=== PATIENT | female | born 1965 | race Caucasian/White ===

== ENCOUNTER 2016-07-11 16:53 | Emergency (ER) | payer BC, OTHER ==
[~2016-07-11] VITALS: Ht 154.9 cm; Wt 58.5 kg
[~2016-07-11 16:53] MED LIST: AMLO5TAB2 PO; ATIV1TAB7 PO; CITA20TA4 PO; SUMA25TA3 PO; [UNRECOGNIZED DRUG - OTHER]
[2016-07-11 19:38] VITALS: BP 150/82
--- NOTE | 2016-07-12 10:34 | REP ---
AP EXAMINATION OF THE NECK, CHEST, ABDOMEN, AND PELVIS: REASON: Rule out metallic foreign body. No radiopaque foreign body is present. Signed by Rodo Lei DO 07/12/2016 11:25 A
== END 2016-07-11 19:40 | disposition home or self-care (01) ==
LOC: M ED 17:57
DX: Z04.8 Encounter for examination and observation for other specified reasons (principal)

== ENCOUNTER 2018-04-25 12:18 | Emergency (ER) | payer BC, OTHER ==
[~2018-04-25] VITALS: Ht 157.5 cm; Wt 64.5 kg
[2018-04-25 12:18] VITALS: BP 151/87
[~2018-04-25 12:18] MED LIST changes: -AMLO5TAB2 PO; +AMLO5TAB4 PO
[2018-04-25] MEDS ORDERED: LIDO1SOL7 PO (13:35)
--- NOTE | 2018-04-29 11:56 | REP ---
Clinical: Foreign body. Technique: Single supine view of the abdomen and pelvis. Findings: Bowel gas pattern is nonspecific. No organomegaly. No abnormal calcifications. No foreign body identified. Impression: No foreign body appreciated. Electronically Signed by Alexander Walker MD 04/25/2018 01:01 P
--- NOTE | 2018-04-29 11:57 | REP ---
Clinical: Foreign body. Technique: AP and lateral soft tissue neck radiographs. Findings: Visualized airway is patent. Surrounding soft tissues are unremarkable. Age-related degenerative changes to the cervical spine noted. No foreign body. No subcutaneous emphysema. No mass or mass effect. Impression: Normal examination. No foreign body identified. Electronically Signed by Alexander Walker MD 04/25/2018 01:03 P
--- NOTE | 2018-04-29 11:57 | REP ---
Clinical: Ingested foreign body . Comparison: 10/28/2011 . Findings: The mediastinum and cardiac silhouette are stable and within normal limits. The lung shin are symmetric and clear without acute consolidation, effusion, or pneumothorax. Skeletal structures are intact. Impression: No acute cardiopulmonary process appreciated. No foreign body identified. Electronically Signed by Alexander Walker MD 04/25/2018 01:02 P
== END 2018-04-25 13:40 | disposition home or self-care (01) ==
LOC: M ED 12:18
DX: R13.10 Dysphagia, unspecified (principal); I10 Essential (primary) hypertension

== ENCOUNTER → 2018-04-28 | Outpatient (CLI) | payer BC, OTHER ==
[~2018-04-28] MED LIST changes: -AMLO5TAB4 PO; +AMLO5TAB6 PO; +LIDO1SOL7 PO
[2018-04-28 17:56] LABS: ALBUMIN 4.4 GM/DL (3.2-5.2); ALT/SGPT 53 U/L (12-78); BILIRUBIN,TOTAL 0.9 MG/DL (0.2-1.0); BLOOD UREA NITROGEN 10 MG/DL (7-18); CALCIUM LEVEL 9.6 MG/DL (8.5-10.1); CARBON DIOXIDE LEVEL 33 MEQ/L (21-32); CHLORIDE LEVEL 97 MEQ/L (98-107); CHOLESTEROL LEVEL 268 MG/DL (<200); CHOLESTEROL RISK RATIO 4.542 (<5); CREATININE FOR GFR 0.74 MG/DL (0.55-1.30); FREE T4 0.92 NG/DL (0.76-1.46); GLOMERULAR FILTRATION RATE > 60.0 (>51); GLUCOSE, FASTING 87 MG/DL (70-100); HDL CHOLESTEROL 59 MG/DL (>40); LDL CHOLESTEROL 168 MG/DL (<100); NON-HDL-C 209 MG/DL; POTASSIUM SERUM 4.4 MEQ/L (3.5-5.1); SODIUM LEVEL 135 MEQ/L (136-145); TOTAL PROTEIN 7.5 GM/DL (6.4-8.2); TRIGLYCERIDES LEVEL 206 MG/DL (<150)
[2018-04-28 17:58] LABS: FOLLICLE STIMULATING HORMONE 100.9 mIU/mL; LUTEINIZING HORMONE 44.4 mIU/mL
[2018-04-28 18:04] LABS: HEMOGLOBIN A1c 5.6 %
== END ==
LOC: M SMT 14:00
PROVIDERS: ATTEND Physician Assistant
DX: I10 Essential (primary) hypertension (principal); G47.00 Insomnia, unspecified

== ENCOUNTER → 2018-05-12 | Outpatient (REF) | payer OTHER ==
[2018-05-14 18:21] LABS: HPV HYBRID CAPTURE II Negative (Negative)
== END ==
LOC: M LAB REF 13:08
PROVIDERS: ATTEND Specialist
DX: Z12.4 Encounter for screening for malignant neoplasm of cervix (principal)

== ENCOUNTER → 2018-06-16 | Outpatient (REF) | payer OTHER | LOC: M LAB REF 17:07 | PROVIDERS: ATTEND Physician Assistant | DX: J02.9 Acute pharyngitis, unspecified (principal) ==

== ENCOUNTER → 2018-10-20 | Outpatient (CLI) | payer OTHER ==
[~2018-10-20] MED LIST changes: -CITA20TA4 PO; +CITA20TA6 PO; -LIDO1SOL7 PO; +LIDO1SOL8 PO
[2018-10-20 17:27] LABS: BASO # 0.1 10^3/uL (0.0-0.2); BASO % 0.8 % (0.0-1.0); EOS # 0.2 10^3/uL (0.0-0.50); EOS % 2.5 % (0.0-3.0); HEMATOCRIT 41.5 % (36.0-47.0); HEMOGLOBIN 14.1 g/dl (12.0-15.5); LYMPH % 32.6 % (24.0-44.0); MEAN CORPUSCULAR HEMOGLOBIN 31.1 pg (27.0-33.0); MEAN CORPUSCULAR VOLUME 91.4 fl (80.0-96.0); MONO # 0.5 10^3/uL (0.0-0.8); MONO % 8.2 % (0.0-5.0); NEUTROPHILS # 3.4 10^3/uL (1.8-7.7); NEUTROPHILS % 55.6 % (36.0-66.0); PLATELET COUNT, AUTOMATED 229 10^3/uL (150-450); RED BLOOD COUNT 4.54 10^6/uL (4.00-5.40); WHITE BLOOD COUNT 6.1 10^3/uL (4.0-10.0)
[2018-10-20 18:03] LABS: ALBUMIN 3.8 GM/DL (3.2-5.2); ALT/SGPT 94 U/L (12-78); BILIRUBIN,TOTAL 0.7 MG/DL (0.2-1.0); BLOOD UREA NITROGEN 14 MG/DL (7-18); CALCIUM LEVEL 8.6 MG/DL (8.5-10.1); CARBON DIOXIDE LEVEL 29 MEQ/L (21-32); CHLORIDE LEVEL 103 MEQ/L (98-107); CHOLESTEROL LEVEL 228 MG/DL (<200); CHOLESTEROL RISK RATIO 5.181 (<5); CREATININE FOR GFR 0.89 MG/DL (0.55-1.30); GLOMERULAR FILTRATION RATE > 60.0 (>51); GLUCOSE, FASTING 89 MG/DL (70-100); HDL CHOLESTEROL 44 MG/DL (>40); NON-HDL-C 184 MG/DL; POTASSIUM SERUM 4.3 MEQ/L (3.5-5.1); SODIUM LEVEL 138 MEQ/L (136-145); TOTAL PROTEIN 7.1 GM/DL (6.4-8.2); TRIGLYCERIDES LEVEL 450 MG/DL (<150)
== END ==
LOC: M SMT 13:52
PROVIDERS: ATTEND Physician Assistant
DX: E78.2 Mixed hyperlipidemia (principal)

== ENCOUNTER → 2018-11-30 | Outpatient (CLI) | payer OTHER ==
[2018-11-30 17:35] LABS: BLOOD UREA NITROGEN 12 MG/DL (7-18); CALCIUM LEVEL 9.2 MG/DL (8.5-10.1); CARBON DIOXIDE LEVEL 31 MEQ/L (21-32); CHLORIDE LEVEL 102 MEQ/L (98-107); CREATININE FOR GFR 0.72 MG/DL (0.55-1.30); GLOMERULAR FILTRATION RATE > 60.0 (>51); GLUCOSE, FASTING 102 MG/DL (70-100); POTASSIUM SERUM 3.9 MEQ/L (3.5-5.1); SODIUM LEVEL 138 MEQ/L (136-145)
== END ==
LOC: M SMT 14:08
PROVIDERS: ATTEND Family Medicine
DX: I10 Essential (primary) hypertension (principal)

== ENCOUNTER → 2019-05-02 | Outpatient (CLI) | payer BC, OTHER ==
[2019-05-02 16:39] LABS: ESTRADIOL 89.9 PG/ML; FOLLICLE STIMULATING HORMONE 18.2 mIU/mL; LUTEINIZING HORMONE 4.9 mIU/mL; PROGESTERONE 3.95 NG/ML
[2019-05-05 14:07] LABS: TESTOSTERONE FREE (DIRECT) 2.5 pg/mL (0.0-4.2)
== END ==
LOC: M PLALAB 12:33
PROVIDERS: ATTEND Obstetrics & Gynecology
DX: F52.0 Hypoactive sexual desire disorder (principal); N95.1 Menopausal and female climacteric states; R53.83 Other fatigue

== ENCOUNTER 2019-05-26 12:11 | Emergency (ER) | payer BC, OTHER ==
[~2019-05-26] VITALS: Ht 162.6 cm; Wt 69.1 kg
[2019-05-26] MEDS ORDERED: KETOROLAC 60 MG/2 ML VIAL (J1885) IM ONE (12:30)
[2019-05-26] MEDS ORDERED: diazePAM 10 MG/2 ML INJ (J3360) IM ONE (12:30)
[2019-05-26] MEDS ORDERED: METH4PACK (12:31)
[2019-05-26] MEDS ORDERED: OXYC1TAB23 (12:31)
[2019-05-26] MEDS ORDERED: VALS1TAB67 (12:31)
[2019-05-26 13:37] VITALS: BP 125/70
== END 2019-05-26 14:34 | disposition home or self-care (01) ==
LOC: M ED 12:11
DX: M54.6 Pain in thoracic spine (principal); Z79.899 Other long term (current) drug therapy
CPT/HCPCS: 96372; 99283; J1885; J3360

== ENCOUNTER → 2019-09-18 | Outpatient (REF) | payer OTHER ==
[~2019-09-18] MED LIST changes: -LIDO1SOL8 PO; +LIDO2SOL17 PO; +METH4PACK; +OXYC1TAB23; +VALS1TAB67
== END ==
LOC: M SFHCWAGY 14:59
PROVIDERS: ATTEND Specialist
DX: Z12.4 Encounter for screening for malignant neoplasm of cervix (principal)
CPT/HCPCS: 87624; G0123

== ENCOUNTER → 2020-02-20 | Outpatient (CLI) | payer BC, OTHER ==
[~2020-02-20] MED LIST changes: +AMLO1TAB24 PO; -AMLO5TAB6 PO
--- NOTE | 2020-02-22 09:10 | SLEEPHOME ---
DATE: 02/20/2020 ORDERED BY: Dr. Gao Nocturnal diagnostic home sleep testing was performed due to concern for the obstructive sleep apnea syndrome. For testing, a nocturnal T3 respiratory monitoring device was used. Continuous record was made of pulse, oxygen saturation, air flow, chest and abdominal strain, and body position. There was 9 hours and 59 minutes of data reviewed. There was 8 hours and 29 minutes marked as time in bed. During the interval marked time in bed, there were 185 respiratory events identified of 10 seconds in duration or greater. The events were not postural. Respiratory disturbance index calculates to be 21.8. Baseline pulse rate was 65. Pulse rate ranged 59-86. Baseline saturation 91%. Saturations fell to 78%. Testing was performed in both the supine and nonsupine positions. IMPRESSION: Abnormal home sleep testing with repetitive respiratory events and oxygen desaturations to 78% with a respiratory event index of 21.8 is consistent with the obstructive sleep apnea syndrome (G47.33). RECOMMENDATION: The patient should be encouraged to undergo formal sleep evaluation. LANAD
== END ==
LOC: M SLEEP HO 12:17
PROVIDERS: ATTEND Internal Medicine Cardiovascular Disease
DX: R06.83 Snoring (principal)

== ENCOUNTER → 2020-03-06 | Outpatient (CLI) | payer BC, OTHER ==
--- NOTE | 2020-03-06 17:00 | REP ---
INDICATION: POSTMENOPAUSAL BLEEDING MAIN REG. COMPARISON: None. TECHNIQUE: Transabdominal and transvaginal scanning were performed. FINDINGS: Uterus is somewhat heterogeneous and increased in size with dimensions of 10.4 x 5.7 x 8.0 cm. A septate uterine morphology is seen. The left-sided the endometrium measures 1.2 cm in thickness and the right measures 0.9 cm. Patient was actively having vaginal bleeding during the exam and endometrial contents could be seen moving within the endometrium on real-time scanning. There is a heterogeneous slightly hyperechoic area in the uterine fundus possible fibroid measuring 4.0 x 4.0 x 3.5 cm. No other focal uterine masses is seen. Visualized bladder franco are smooth.. Neither ovary could be identified transabdominally or transvaginally. No adnexal mass, cyst or free fluid.. . IMPRESSION: Heterogeneous mildly enlarged septate uterus. Possible 4 cm fundal fibroid. Neither ovary could be directly visualized.. <Electronically signed by Eriberto Gonzalez > 03/06/20 [id number]
== END ==
LOC: M RAD 13:14
PROVIDERS: ATTEND Family Medicine
DX: N95.0 Postmenopausal bleeding (principal)

== ENCOUNTER → 2020-04-12 | Outpatient (CLI) | payer BC, OTHER ==
[~2020-04-12] MED LIST changes: +ATEN25TA; +D31000TA2 PO; +DOXE25CA; +ESCI5SOL3 PO; +GABA-845 PO; +PERI2TAB; +RAMI1CAP26 PO; +TRAZ-189
== END ==
LOC: M LABSMTC 12:05
PROVIDERS: ATTEND Anesthesiology
DX: Z01.812 Encounter for preprocedural laboratory examination (principal); Z20.828 Contact with and (suspected) exposure to other viral communicable diseases

== ENCOUNTER 2020-04-17 09:41 | Day surgery (SDC) | payer BC, OTHER ==
[~2020-04-17] VITALS: Ht 154.9 cm; Wt 67.6 kg
[~2020-04-17 09:41] MED LIST changes: -ATEN25TA; +ATEN25TA PO; +LR 1,000 ML IV ONE; +ceFAZolin SOD 2 GM in IV 1 EA IV ONE
[2020-04-17] MEDS ORDERED: fentaNYL 250 MCG/5 ML INJECTION (J3010) As Ordered ONE (09:46)
[2020-04-17] MEDS ORDERED: LIDOCAINE 2% 100MG/5ML SDV (FOR ANES.) As Ordered ONE (09:46)
[2020-04-17] MEDS ORDERED: propofoL 200 MG/20 ML VIAL As Ordered ONE (09:46)
[2020-04-17] MEDS ORDERED: MIDAZOLAM INJ 2MG/2ML VIAL (J2250 PER 1MG) As Ordered ONE (09:46)
[2020-04-17] MEDS ORDERED: ROCURONIUM BROMIDE 50 MG/5 ML VIAL As Ordered ONE (09:46)
[2020-04-17] MEDS ORDERED: KETOROLAC 60MG 2ML VIAL As Ordered ONE ×2 (09:55→11:07)
[2020-04-17] MEDS ORDERED: PERI4TAB PO (10:12)
[2020-04-17] MEDS ORDERED: BUPIVACAINE HCL 0.25% 10ML VIAL As Ordered ONE (10:13)
[2020-04-17] MEDS ORDERED: SCOPOLAMINE 1MG TRANSDERMAL PATCH As Ordered ONE (10:25)
[2020-04-17 10:27] LABS: HEMATOCRIT 40.6 % (36.0-47.0); HEMOGLOBIN 13.7 g/dl (12.0-15.5); MEAN CORPUSCULAR HEMOGLOBIN 30.2 pg (27.0-33.0); MEAN CORPUSCULAR HGB CONC 33.7 g/dl (32.0-36.5); MEAN CORPUSCULAR VOLUME 89.6 fl (80.0-96.0); PLATELET COUNT, AUTOMATED 247 10^3/uL (150-450); RED BLOOD COUNT 4.53 10^6/uL (4.00-5.40); WHITE BLOOD COUNT 5.2 10^3/uL (4.0-10.0)
[2020-04-17] MEDS ORDERED: SCOPOLAMINE 1MG TRANSDERMAL PATCH TOP ONE (10:30)
[2020-04-17] MEDS ORDERED: dexameTHASONE 4 MG/ML 1ML VIAL (J1100 PER 1MG) As Ordered ONE (10:48)
[2020-04-17] MEDS ORDERED: ePHEDrine SULFATE 25 MG/5 ML(5MG/ML) SYRINGE As Ordered ONE (11:03)
[2020-04-17] MEDS ORDERED: ACETAMINOPHEN 1000MG 100ML IV BTL (OFIRMEV) (J0131 PER 10MG) As Ordered ONE (11:04)
[2020-04-17] MEDS ORDERED: METOCLOPRAMIDE INJ 10MG/2ML VIAL (J2765 PER 1) As Ordered ONE (11:07)
[2020-04-17] MEDS ORDERED: PHENYLephrine HCL 500 MCG/5 ML (100MCG/ML) SYRINGE (J2370) As Ordered ONE (11:07)
[2020-04-17] MEDS ORDERED: ONDANSETRON 4MG/2ML VIAL As Ordered ONE (11:08)
[2020-04-17] MEDS ORDERED: oxyCODONE 5MG TAB As Ordered ONE (12:59)
[2020-04-17] MEDS ORDERED: LR 1,000 ML IV SCH (13:00)
[2020-04-17] MEDS ORDERED: oxyCODONE 5MG TAB PO PRN (13:00)
[2020-04-17] MEDS ORDERED: fentaNYL 100 MCG/2 ML INJECTION (J3010) IV PRN (13:00)
[2020-04-17] MEDS ORDERED: ONDANSETRON 4MG/2ML VIAL IV PRN ×2 (13:00→13:15)
--- NOTE | 2020-04-17 13:07 | ROOPDOC ---
[facility] Report Of Operation Report of Operation DATE OF PROCEDURE: 04/17/20 OPERATIVE REPORT: Preoperative diagnosis: post menopausal bleeding, uterine fibroids. Postoperative diagnosis: Same. Procedure: Robotic-assisted laparoscopic hysterectomy, bilateral salpingo- oophorectomy, cystoscopy. Surgeon: Celia Saenz M.D. Silica Spray Mixer: Wendy Rizvi NP Findings: Enlarged, irregular fibroid uterus, normal ovaries, and fallopian tubes EBL: 100 mL's. Urine output: 450 mL's. Operative summary: Patient was taken to the operating room where general endotracheal anesthesia was induced. She was prepped and draped in sterile fashion in the dorsal lithotomy position. A Coles Catheter was placed. A V care uterine manipulator was placed. A Periumbilical incision was made with a scalpel. . A Veress needle was placed through this incision. Intra-abdominal location of Veress needle was assessed with saline filled syringe. A pneumoperitoneum was created. The Veress needle was removed. An 8 mm trocar using the Visiport was inserted through this incision. Three 8 mm suprapubic ports were placed under direct visualization The patient was placed in Trendelenburg position. The da Jhon surgical robot was docked to the ports. Using the fenestrated bipolar instrument and vessel sealer., the IP ligaments and broad ligaments were coagulated and incised. The round ligaments were coagulated and incised. The anterior and posterior leaves of the broad ligament were . Bladder flap was created. The uterine vessels were coagulated and incised using monopolar Endo Robby. A colpotomy was created in the upper vagina at the level of the V care Cup. The specimen including the uterus, cervix, fallopian tubes and ovaries was removed through the vagina. The vaginal cuff was closed with #1 V lock suture in running fashion. Cystoscopy was performed using a 70 cystoscope. Bilateral ureteral jets were identified. No evidence of injury to the bladder. The cystoscope was removed. All instruments removed. The skin was closed with 4-0 Monocryl subcuticular sutures. Wendy Rizvi NP assisted with all aspects of the procedure. She helped position the patient. She helped insert the ports and manipulate the uterus. She removed the specimen. CELIA SAENZ MD Apr 17, 2020 13:07
[2020-04-17] MEDS ORDERED: PERCOCET 5MG/325MG TAB PO PRN (13:15)
[2020-04-17] MEDS ORDERED: KETOROLAC 30 MG/ML 1ML VIAL IV PRN (13:15)
[2020-04-17] MEDS ORDERED: MORPHINE 4 MG/ML 1ML VIAL/SYRINGE (J2270) IV PRN (13:15)
[2020-04-17] MEDS ORDERED: OXYC1TAB23 PO (13:31)
[2020-04-17 14:20] VITALS: BP 131/71
[2020-04-17] MEDS: LR 1,000 ML IV SCH ×2 (14:33→21:00)
[2020-04-17] MEDS ORDERED: PERI2TAB PO (14:35)
[2020-04-17] MEDS ORDERED: ESCI20TA PO (14:35)
[2020-04-17] MEDS ORDERED: GABA-1171 PO (14:35)
[2020-04-17 14:50] VITALS: BP 126/70
[2020-04-17 15:50] VITALS: BP 126/70
[2020-04-17] MEDS: PERCOCET 5MG/325MG TAB PO PRN ×2 (15:58→22:07)
[2020-04-17 16:50] VITALS: BP 114/69
[2020-04-17 17:00] VITALS: BP 115/69
[2020-04-17 22:00] VITALS: BP 113/67
[2020-04-17] MEDS: DOCUSATE SODIUM 100MG CAPSULE PO SCH (22:06)
[2020-04-18 02:00] VITALS: BP 123/77
[2020-04-18] MEDS: PERCOCET 5MG/325MG TAB PO PRN ×2 (02:41→11:00)
[2020-04-18 06:00] VITALS: BP 117/71
[2020-04-18 10:00] VITALS: BP 115/66
[2020-04-18] MEDS ORDERED: IBUP-1022 PO (10:34)
[2020-04-18] MEDS: DOCUSATE SODIUM 100MG CAPSULE PO SCH (10:58)
== END 2020-04-18 13:40 | disposition home or self-care (01) ==
LOC: M SDC 09:41 → M MS5PR 14:10 → M SDC 04-18 13:40
PROVIDERS: ATTEND Specialist
DX: N95.0 Postmenopausal bleeding (principal); D25.1 Intramural leiomyoma of uterus; N84.0 Polyp of corpus uteri; N80.0 Endometriosis of uterus; N72 Inflammatory disease of cervix uteri; N88.8 Other specified noninflammatory disorders of cervix uteri; I10 Essential (primary) hypertension; M12.9 Arthropathy, unspecified; F32.9 Major depressive disorder, single episode, unspecified; F41.9 Anxiety disorder, unspecified; G43.909 Migraine, unspecified, not intractable, without status migrainosus; R06.83 Snoring; G47.30 Sleep apnea, unspecified; Z79.899 Other long term (current) drug therapy
CPT/HCPCS: 36415; 58571; 85027; 86850; 86900; 86901; 88307; J0131; J0690; J1100; J1885; J2250; J2370; J2405; J2765; J3010

== ENCOUNTER → 2020-12-30 | Outpatient (CLI) | payer BC, OTHER ==
[~2020-12-30] MED LIST changes: +ESCI20TA16 PO; +GABA-1171 PO; +GABA-283 PO; -GABA-845 PO; +IBUP-1022 PO; -LR 1,000 ML IV ONE; +OXYC1TAB23 PO; +PERI2TAB PO; +PERI4TAB PO; -ceFAZolin SOD 2 GM in IV 1 EA IV ONE
[2020-12-30 15:31] LABS: BLOOD UREA NITROGEN 10 MG/DL (7-18); CALCIUM LEVEL 9.4 MG/DL (8.5-10.1); CARBON DIOXIDE LEVEL 32 MEQ/L (21-32); CHLORIDE LEVEL 105 MEQ/L (98-107); CREATININE FOR GFR 0.73 MG/DL (0.55-1.30); GLOMERULAR FILTRATION RATE > 60.0 (>51); GLUCOSE, FASTING 104 MG/DL (70-100); POTASSIUM SERUM 4.5 MEQ/L (3.5-5.1); SODIUM LEVEL 140 MEQ/L (136-145)
== END ==
LOC: M PLALAB 12:47
PROVIDERS: ATTEND Physician Assistant
DX: I10 Essential (primary) hypertension (principal)

== ENCOUNTER 2021-01-02 10:36 | Emergency (ER) | payer BC, OTHER ==
[~2021-01-02] VITALS: Ht 154.9 cm; Wt 62.3 kg
[2021-01-02] MEDS ORDERED: NS 1,000 ML IV ONE (12:05)
[2021-01-02 12:27] LABS: BASO % 0.2 % (0.0-1.0); EOS % 0.4 % (0.0-3.0); HEMATOCRIT 42.4 % (36.0-47.0); HEMOGLOBIN 14.3 g/dl (12.0-15.5); LYMPH # 1.2 10^3/uL (1.5-5.0); LYMPH % 15.2 % (24.0-44.0); MEAN CORPUSCULAR HEMOGLOBIN 30.3 pg (27.0-33.0); MEAN CORPUSCULAR HGB CONC 33.7 g/dl (32.0-36.5); MEAN CORPUSCULAR VOLUME 89.8 fl (80.0-96.0); MONO # 0.3 10^3/uL (0.0-0.8); MONO % 3.8 % (2.0-8.0); NEUTROPHILS # 6.5 10^3/uL (1.5-8.5); PLATELET COUNT, AUTOMATED 221 10^3/uL (150-450); RED BLOOD COUNT 4.72 10^6/uL (4.00-5.40); WHITE BLOOD COUNT 8.1 10^3/uL (4.0-10.0)
[2021-01-02 13:07] LABS: ALBUMIN 4.4 GM/DL (3.2-5.2); ALT/SGPT 41 U/L (12-78); BILIRUBIN,DIRECT 0.1 MG/DL (0.0-0.2); BILIRUBIN,TOTAL 0.5 MG/DL (0.2-1.0); CK-MB VALUE MASS 2.6 NG/ML (<3.6); CPK CREATINE PHOSPHOKINASE 96 U/L (26-192); FREE T4 0.88 NG/DL (0.76-1.46); MAGNESIUM LEVEL 2.1 MG/DL (1.8-2.4); MB/CK RELATIVE INDEX 2.71 (< OR =4); TOTAL PROTEIN 7.6 GM/DL (6.4-8.2); TROPONIN I < 0.02 NG/ML (< 0.10)
--- NOTE | 2021-01-02 16:21 | REP ---
INDICATION: weakness. COMPARISON: 04/25/2018. TECHNIQUE: Single portable AP view of the chest was performed. FINDINGS: There is no acute infiltrate or pulmonary edema. Lungs are clear. The heart is not significantly enlarged. The mediastinal silhouette is unremarkable. The visualized osseous structures are intact. IMPRESSION: No acute pulmonary disease. <Electronically signed by Gera Gilbert > 01/02/21 [id number]
[2021-01-02 16:28] LABS: CK-MB VALUE MASS 2.2 NG/ML (<3.6); CPK CREATINE PHOSPHOKINASE 89 U/L (26-192); MB/CK RELATIVE INDEX 2.47 (< OR =4); TROPONIN I < 0.02 NG/ML (< 0.10)
[2021-01-02] MEDS ORDERED: ONDA4TAB6 PO (16:34)
[2021-01-02 17:11] VITALS: BP 137/78
--- NOTE | 2021-01-03 11:33 | ECGEPIP ---
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 Order Number: [id number] Reading MD: Kassandra Espinal Measurements Intervals Circle Rate: 66 P: 48 MD: 172 QRS: 14 QRSD: 78 T: 34 QT: 436 QTc: 457 Interpretive Statements Normal sinus rhythm NSTTW abnormalities No prior Electronically Signed on 01-03-2021 11:32:39 EDT by Kassandra Espinal
--- NOTE | 2021-01-03 11:38 | ECGEPIP ---
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 Order Number: [id number] Reading MD: Kassandra Espinal Measurements Intervals [place] Rate: 63 P: 68 TN: 174 QRS: 12 QRSD: 86 T: 72 QT: 408 QTc: 417 Interpretive Statements Normal sinus rhythm Nonspecific T wave abnormality similar 01/02/21 Electronically Signed on 01-03-2021 11:37:50 EDT by Kassandra Espinal
== END 2021-01-02 17:14 | disposition home or self-care (01) ==
LOC: M ED 10:36
DX: R11.2 Nausea with vomiting, unspecified (principal); R61 Generalized hyperhidrosis; I10 Essential (primary) hypertension; G47.33 Obstructive sleep apnea (adult) (pediatric); Z79.899 Other long term (current) drug therapy
CPT/HCPCS: 71045; 80047; 80076; 82550; 82553; 83735; 84439; 84443; 84484; 85025; 93005; 93041; 96360; 96361; 99284; U0003

== ENCOUNTER → 2021-02-07 | Outpatient (CLI) | payer BC, OTHER ==
[~2021-02-07] MED LIST changes: +ALPR0.25 PO; +AMBI10TA PO; +ONDA4TAB6 PO; +VENL1TAB35 PO
== END ==
LOC: M LABSMTC 10:11
PROVIDERS: ATTEND Anesthesiology
DX: Z01.812 Encounter for preprocedural laboratory examination (principal); Z20.822 Contact with and (suspected) exposure to COVID-19

== ENCOUNTER 2021-02-12 08:08 | Day surgery (SDC) | payer BC, OTHER ==
[~2021-02-12] VITALS: Ht 154.9 cm; Wt 61.4 kg
[~2021-02-12 08:08] MED LIST changes: +NS 1,000 ML IV ONE
[2021-02-12] MEDS ORDERED: propofoL 200 MG/20 ML VIAL As Ordered ONE (08:21)
[2021-02-12] MEDS ORDERED: LIDOCAINE 2% 100MG/5ML SDV (FOR ANES.) As Ordered ONE (08:21)
[2021-02-12] MEDS ORDERED: MIDAZOLAM INJ 2MG/2ML VIAL (J2250 PER 1MG) As Ordered ONE (08:52)
[2021-02-12] MEDS ORDERED: ONDANSETRON 4MG/2ML VIAL As Ordered ONE (08:52)
--- NOTE | 2021-02-12 10:09 | ROOR ---
Patient Name: Yi Lee Procedure Date: 02/12/2021 9:49 AM Date of : 1965 Age: 55 Room: [facility] Gender: Female Note Status: Finalized Procedure: Total Colonoscopy to Cecum + ileoscopy Indications: High risk colon cancer surveillance: Personal history of colonic polyps, Last colonoscopy: 2015 Providers: Neno Fischer MD Referring MD: Jesenia FIGUEROA DO Requesting Provider: Medicines: Monitored Anesthesia Care Complications: No immediate complications. Procedure: Pre-Anesthesia Assessment: - The heart rate, respiratory rate, oxygen saturations, blood pressure, adequacy of pulmonary ventilation, and response to care were monitored throughout the procedure. The Colonoscope was introduced through the anus and advanced to the terminal ileum, with identification of the appendiceal orifice and IC valve. The colonoscopy was performed without difficulty. The patient tolerated the procedure well. The quality of the bowel preparation was excellent. Findings: The perianal and digital rectal examinations were normal. Non-bleeding internal hemorrhoids were found during retroflexion. The hemorrhoids were small and Grade I (internal hemorrhoids that do not prolapse). A few small-mouthed diverticula were found in the recto-sigmoid colon and sigmoid colon. The terminal ileum appeared normal. The exam was otherwise without abnormality on direct and retroflexion views. Impression: - Non-bleeding internal hemorrhoids. - Diverticulosis in the recto-sigmoid colon and in the sigmoid colon. - The examined portion of the ileum was normal. - The examination was otherwise normal on direct and retroflexion views. - No specimens collected. - The exam was otherwise normal to the cecum. Recommendation: - Patient has a contact number available for emergencies. The signs and symptoms of potential delayed complications were discussed with the patient. Return to normal activities tomorrow. Written discharge instructions were provided to the patient. - High fiber diet. - Discharge patient to home. - Continue present medications. - Repeat colonoscopy in 5 years for surveillance. - Return to referring physician. - The findings and recommendations were discussed with the patient. Procedure Code(s): --- Professional --- G0105, Colorectal cancer screening; colonoscopy on individual at high risk Diagnosis Code(s): --- Professional --- Z86.010, Personal history of colonic polyps K64.0, First degree hemorrhoids K57.30, Diverticulosis of large intestine without perforation or abscess without bleeding CPT copyright 2019 [employer]. All rights reserved. The codes documented in this report are preliminary and upon sales advisor review may be revised to meet current compliance requirements. Neno Fischer MD Neno Fischer MD 02/12/2021 10:08:45 AM Electronically signed by Neno Fischer MD Number of Addenda: 0 Note Initiated On: 02/12/2021 9:49 AM Estimated Blood Loss: Estimated blood loss: none.
[2021-02-12 10:25] VITALS: BP 141/67
== END 2021-02-12 10:36 | disposition home or self-care (01) ==
LOC: M OPP 08:08
PROVIDERS: ATTEND Internal Medicine Gastroenterology
DX: Z12.11 Encounter for screening for malignant neoplasm of colon (principal); Z86.010 Personal history of colon polyps; K57.30 Diverticulosis of large intestine without perforation or abscess without bleeding; K64.0 First degree hemorrhoids; G47.30 Sleep apnea, unspecified; I10 Essential (primary) hypertension; Z79.899 Other long term (current) drug therapy
CPT/HCPCS: 45378; J2405

== ENCOUNTER → 2021-02-26 | Outpatient (REF) | payer BC, OTHER ==
[~2021-02-26] MED LIST changes: -NS 1,000 ML IV ONE
== END ==
LOC: M LAB REF 17:46
PROVIDERS: ATTEND Family Medicine
DX: Z20.822 Contact with and (suspected) exposure to COVID-19 (principal)

== ENCOUNTER → 2021-04-23 | Outpatient (REF) | payer OTHER, BC | LOC: M LAB REF 18:44 | PROVIDERS: ATTEND Physician Assistant | DX: J20.9 Acute bronchitis, unspecified (principal) ==

== ENCOUNTER → 2021-04-30 | Outpatient (CLI) | payer BC, OTHER ==
[2021-04-30 10:36] LABS: BASO % 0.5 % (0.0-1.0); EOS # 0.1 10^3/uL (0.0-0.5); EOS % 1.6 % (0.0-3.0); LYMPH # 1.9 10^3/uL (1.5-5.0); LYMPH % 33.7 % (24.0-44.0); MEAN CORPUSCULAR HEMOGLOBIN 29.8 pg (27.0-33.0); MEAN CORPUSCULAR HGB CONC 33.3 g/dl (32.0-36.5); MEAN CORPUSCULAR VOLUME 89.4 fl (80.0-96.0); MONO # 0.4 10^3/uL (0.0-0.8); MONO % 6.2 % (2.0-8.0); NEUTROPHILS # 3.3 10^3/uL (1.5-8.5); NEUTROPHILS % 57.5 % (36.0-66.0); PLATELET COUNT, AUTOMATED 319 10^3/uL (150-450); RED BLOOD COUNT 4.36 10^6/uL (4.00-5.40); WHITE BLOOD COUNT 5.7 10^3/uL (4.0-10.0)
[2021-04-30 11:10] LABS: ALBUMIN 3.7 GM/DL (3.2-5.2); ALT/SGPT 54 U/L (12-78); BILIRUBIN,TOTAL 0.6 MG/DL (0.2-1.0); BLOOD UREA NITROGEN 15 MG/DL (7-18); CALCIUM LEVEL 9.3 MG/DL (8.5-10.1); CARBON DIOXIDE LEVEL 32 MEQ/L (21-32); CHLORIDE LEVEL 103 MEQ/L (98-107); CHOLESTEROL LEVEL 250 MG/DL (<200); CHOLESTEROL RISK RATIO 5.208 (<5); CREATININE FOR GFR 0.76 MG/DL (0.55-1.30); FREE T4 0.94 NG/DL (0.76-1.46); GLOMERULAR FILTRATION RATE > 60.0 (>51); GLUCOSE, FASTING 102 MG/DL (70-100); HDL CHOLESTEROL 48 MG/DL (>40); LDL CHOLESTEROL 172 MG/DL (<100); NON-HDL-C 202 MG/DL; POTASSIUM SERUM 4.8 MEQ/L (3.5-5.1); SODIUM LEVEL 138 MEQ/L (136-145); TRIGLYCERIDES LEVEL 148 MG/DL (<150)
== END ==
LOC: M PLALAB 04-29 12:24
PROVIDERS: ATTEND Physician Assistant
DX: Z13.220 Encounter for screening for lipoid disorders (principal); Z13.29 Encounter for screening for other suspected endocrine disorder

== ENCOUNTER → 2021-06-30 | Outpatient (CLI) | payer BC, OTHER ==
[2021-06-30 11:15] LABS: ALBUMIN 4.1 GM/DL (3.2-5.2); ALT/SGPT 32 U/L (12-78); BILIRUBIN,TOTAL 0.8 MG/DL (0.2-1.0); BLOOD UREA NITROGEN 11 MG/DL (7-18); CALCIUM LEVEL 9.3 MG/DL (8.5-10.1); CARBON DIOXIDE LEVEL 28 MEQ/L (21-32); CHLORIDE LEVEL 104 MEQ/L (98-107); CHOLESTEROL LEVEL 173 MG/DL (<200); CHOLESTEROL RISK RATIO 3.089 (<5); CREATININE FOR GFR 0.74 MG/DL (0.55-1.30); GLOMERULAR FILTRATION RATE > 60.0 (>51); GLUCOSE, FASTING 95 MG/DL (70-100); HDL CHOLESTEROL 56 MG/DL (>40); LDL CHOLESTEROL 91 MG/DL (<100); NON-HDL-C 117 MG/DL; POTASSIUM SERUM 4.4 MEQ/L (3.5-5.1); SODIUM LEVEL 140 MEQ/L (136-145); TOTAL PROTEIN 7.1 GM/DL (6.4-8.2); TRIGLYCERIDES LEVEL 132 MG/DL (<150)
== END ==
LOC: M PLALAB 07:41
PROVIDERS: ATTEND Physician Assistant
DX: E78.00 Pure hypercholesterolemia, unspecified (principal); I10 Essential (primary) hypertension

== ENCOUNTER → 2021-10-31 | Outpatient (CLI) | payer BC, OTHER ==
[~2021-10-31] MED LIST changes: -D31000TA2 PO; +VITA100093 PO
== END ==
LOC: M PLAIMG 11:52
PROVIDERS: ATTEND Family Medicine
DX: M25.551 Pain in right hip (principal)

== ENCOUNTER → 2022-05-20 | Outpatient (CLI) | payer BC, OTHER ==
[2022-05-20 13:20] LABS: BASO % 0.4 % (0.0-1.0); EOS # 0.1 10^3/uL (0.0-0.5); EOS % 1.8 % (0.0-3.0); HEMATOCRIT 36.7 % (36.0-47.0); HEMOGLOBIN 12.5 g/dl (12.0-15.5); LYMPH # 1.7 10^3/uL (1.5-5.0); LYMPH % 33.3 % (24.0-44.0); MEAN CORPUSCULAR HEMOGLOBIN 31.2 pg (27.0-33.0); MEAN CORPUSCULAR HGB CONC 34.1 g/dl (32.0-36.5); MEAN CORPUSCULAR VOLUME 91.5 fl (80.0-96.0); MONO # 0.3 10^3/uL (0.0-0.8); MONO % 5.8 % (2.0-8.0); NEUTROPHILS % 58.5 % (36.0-66.0); PLATELET COUNT, AUTOMATED 221 10^3/uL (150-450); RED BLOOD COUNT 4.01 10^6/uL (4.00-5.40); WHITE BLOOD COUNT 5.1 10^3/uL (4.0-10.0)
[2022-05-20 13:29] LABS: ERYTHROCYTE SEDIMENTATION RATE 14 mm/hr (0-30)
[2022-05-20 13:41] LABS: C REACTIVE PROTEIN QUANTITATIV < 0.40 MG/DL (<1.0)
[2022-05-20 13:43] LABS: BLOOD UREA NITROGEN 11 MG/DL (9-23); CALCIUM LEVEL 9.1 MG/DL (8.5-10.1); CARBON DIOXIDE LEVEL 32 MMOL/L (20-31); CHLORIDE LEVEL 100 MMOL/L (98-107); CPK CREATINE PHOSPHOKINASE 71 U/L (34-145); CREATININE FOR GFR 0.78 MG/DL (0.55-1.30); GLOMERULAR FILTRATION RATE > 60.0 (>51); GLUCOSE, FASTING 105 MG/DL (60-100); POTASSIUM SERUM 4.2 MMOL/L (3.5-5.1); SODIUM LEVEL 137 MMOL/L (136-145)
[2022-05-20 13:45] LABS: TOTAL 25(OH) VITAMIN D 89.3 NG/ML (20.0-100.0)
== END ==
LOC: M PLALAB 09:49
PROVIDERS: ATTEND Physician Assistant
DX: M79.10 Myalgia, unspecified site (principal)

== ENCOUNTER → 2023-03-10 | Outpatient (CLI) | payer BC, OTHER ==
[~2023-03-10] MED LIST changes: -GABA-283 PO; +GABA-284 PO; +LIDO15SO PO; -LIDO2SOL17 PO
== END ==
LOC: M PLAIMG 14:07
PROVIDERS: ATTEND Physician Assistant
DX: D16.4 Benign neoplasm of bones of skull and face (principal)

== ENCOUNTER → 2023-08-26 | Outpatient (CLI) | payer BC ==
[~2023-08-26] MED LIST changes: -LIDO15SO PO; +LIDO15SO8 PO
== END ==
LOC: M WHC 08:05
PROVIDERS: ATTEND Physician Assistant
DX: Z13.820 Encounter for screening for osteoporosis (principal)

== ENCOUNTER → 2023-10-08 | Outpatient (CLI) | payer BC ==
[~2023-10-08] MED LIST changes: +ONDA-282 PO; -ONDA4TAB6 PO; +RAMI10CA64 PO; -RAMI1CAP26 PO
== END ==
LOC: M PLAIMG 13:55
PROVIDERS: ATTEND Physician Assistant
DX: M25.541 Pain in joints of right hand (principal)

== ENCOUNTER → 2024-06-06 | Outpatient (REF) | payer BC ==
[2024-06-06 18:05] LABS: APPEARANCE, URINE CLEAR (CLEAR); BACTERIA, URINE AUTO NEGATIVE (NEGATIVE); BILIRUBIN, URINE AUTO NEGATIVE (NEGATIVE); BLOOD, URINE BLOOD NEGATIVE (NEGATIVE); COLOR, URINE YELLOW (YELLOW); GLUCOSE, URINE (UA) AUTO NEGATIVE (NEGATIVE); KETONE, URINE AUTO NEGATIVE (NEGATIVE); LEUKOCYTE ESTERASE, URINE AUTO NEGATIVE (NEGATIVE); MUCUS, URINE SMALL (NEGATIVE); NITRITE, URINE AUTO NEGATIVE (NEGATIVE); PROTEIN, URINE AUTO NEGATIVE (NEGATIVE); RBC, URINE AUTO 0 /HPF (0-3); SPECIFIC GRAVITY URINE AUTO 1.008 (1.002-1.035); SQUAMOUS EPITHELIAL CELL UR AU 0 /HPF (0-6); UROBILINOGEN, URINE AUTO 0.2 mg/dL (0.0-2.0); WBC, URINE AUTO 1 /HPF (0-3)
== END ==
LOC: M SMT 17:37
PROVIDERS: ATTEND Nurse Practitioner Family
DX: R32 Unspecified urinary incontinence (principal)

== ENCOUNTER → 2024-08-13 | Outpatient (CLI) | payer BC ==
[~2024-08-13] MED LIST changes: +BUPR75TA5 PO; +LORA2TAB14 PO; +SIMV20TA22 PO; +SPIR50TA4 PO; +THERTAB52 PO; +TRAZ-257 PO
[2024-08-13 15:03] LABS: APPEARANCE, URINE CLEAR (CLEAR); BACTERIA, URINE AUTO NEGATIVE (NEGATIVE); BILIRUBIN, URINE AUTO NEGATIVE (NEGATIVE); BLOOD, URINE BLOOD NEGATIVE (NEGATIVE); COLOR, URINE STRAW (YELLOW); GLUCOSE, URINE (UA) AUTO NEGATIVE (NEGATIVE); KETONE, URINE AUTO NEGATIVE (NEGATIVE); LEUKOCYTE ESTERASE, URINE AUTO NEGATIVE (NEGATIVE); NITRITE, URINE AUTO NEGATIVE (NEGATIVE); PROTEIN, URINE AUTO NEGATIVE (NEGATIVE); RBC, URINE AUTO 0 /HPF (0-3); SPECIFIC GRAVITY URINE AUTO 1.006 (1.002-1.035); SQUAMOUS EPITHELIAL CELL UR AU 0 /HPF (0-6); UROBILINOGEN, URINE AUTO 0.2 mg/dL (0.0-2.0); WBC, URINE AUTO 0 /HPF (0-3)
[2024-08-13 15:05] LABS: HEMATOCRIT 39.8 % (36.0-47.0); HEMOGLOBIN 13.4 g/dl (12.0-15.5); MEAN CORPUSCULAR HEMOGLOBIN 30.4 pg (27.0-33.0); MEAN CORPUSCULAR HGB CONC 33.7 g/dl (32.0-36.5); MEAN CORPUSCULAR VOLUME 90.2 fl (80.0-96.0); PLATELET COUNT, AUTOMATED 199 10^3/uL (150-450); RED BLOOD COUNT 4.41 10^6/uL (4.00-5.40); WHITE BLOOD COUNT 6.2 10^3/uL (4.0-10.0)
[2024-08-13 15:33] LABS: CALCIUM LEVEL 9.1 MG/DL (8.3-10.6); CREATININE FOR GFR 0.93 MG/DL (0.55-1.30); GLOMERULAR FILTRATION RATE 69.9 (>45); POTASSIUM SERUM 4.3 MMOL/L (3.5-5.1)
== END ==
LOC: M RAD 14:23
PROVIDERS: ATTEND Urology
DX: Z01.818 Encounter for other preprocedural examination (principal); N39.3 Stress incontinence (female) (male); N39.0 Urinary tract infection, site not specified

== ENCOUNTER → 2024-08-14 | Outpatient (CLI) | payer BC | LOC: M EKG 16:32 | PROVIDERS: ATTEND Urology | DX: Z01.818 Encounter for other preprocedural examination (principal); N39.3 Stress incontinence (female) (male); R00.1 Bradycardia, unspecified; R94.31 Abnormal electrocardiogram [ECG] [EKG] ==

== ENCOUNTER → 2024-08-16 | Outpatient (REF) | payer BC ==
[2024-08-16 14:00] LABS: APPEARANCE, URINE CLEAR (CLEAR); BACTERIA, URINE AUTO NEGATIVE (NEGATIVE); BILIRUBIN, URINE AUTO NEGATIVE (NEGATIVE); BLOOD, URINE BLOOD NEGATIVE (NEGATIVE); COLOR, URINE STRAW (YELLOW); GLUCOSE, URINE (UA) AUTO NEGATIVE (NEGATIVE); KETONE, URINE AUTO NEGATIVE (NEGATIVE); LEUKOCYTE ESTERASE, URINE AUTO NEGATIVE (NEGATIVE); NITRITE, URINE AUTO NEGATIVE (NEGATIVE); PROTEIN, URINE AUTO NEGATIVE (NEGATIVE); RBC, URINE AUTO 0 /HPF (0-3); SPECIFIC GRAVITY URINE AUTO 1.009 (1.002-1.035); SQUAMOUS EPITHELIAL CELL UR AU 0 /HPF (0-6); UROBILINOGEN, URINE AUTO 0.2 mg/dL (0.0-2.0); WBC, URINE AUTO 0 /HPF (0-3)
== END ==
LOC: M SMT 12:52
PROVIDERS: ATTEND Urology
DX: Z01.818 Encounter for other preprocedural examination (principal); N39.3 Stress incontinence (female) (male); N39.0 Urinary tract infection, site not specified

== ENCOUNTER 2024-08-23 10:03 | Day surgery (SDC) | payer BC ==
[~2024-08-23] VITALS: Ht 154.9 cm; Wt 59.8 kg
[~2024-08-23 10:03] MED LIST changes: -AMBI10TA PO; +LIDOCAINE 2% 100MG/5ML SDV (FOR ANES.) As Ordered ONE; +MIDAZOLAM INJ 2MG/2ML VIAL As Ordered ONE; +ONDANSETRON 4MG 2ML VIAL As Ordered ONE; +ZOLP-533 PO; +dexmedeTOMIDine (4MCG/ML)200MCG/50ML BTL (PRECEDEX) As Ordered ONE; +fentaNYL 100 MCG/2 ML INJECTION As Ordered ONE; +propofoL 200 MG/20 ML VIAL As Ordered ONE
[2024-08-23] MEDS: SCOPOLAMINE 1MG TRANSDERMAL PATCH TOP ONE (11:24)
[2024-08-23] MEDS: ceFAZolin SOD 2 GM IV ONCE IV ONE (11:26)
[2024-08-23] MEDS ORDERED: ACETAMINOPHEN 1000MG/100ML IV BAG As Ordered ONE (11:42)
[2024-08-23] MEDS: LIDOCAINE 2% 5ML JELLY UROJET As Ordered ONE (11:46)
[2024-08-23 12:35] VITALS: BP 135/77; TEMP 97; O2SAT 98
== END 2024-08-23 12:49 | disposition home or self-care (01) ==
LOC: M SDC 10:03
PROVIDERS: ATTEND Urology
DX: N39.3 Stress incontinence (female) (male) (principal); I10 Essential (primary) hypertension; Z79.899 Other long term (current) drug therapy; F41.9 Anxiety disorder, unspecified; F32.A Depression, unspecified; G43.909 Migraine, unspecified, not intractable, without status migrainosus; G47.33 Obstructive sleep apnea (adult) (pediatric)
CPT/HCPCS: 51715; A4215; J0131; J0690; J1100; J2250; J2405; J3010; L8606

== ENCOUNTER → 2024-09-05 | Outpatient (CLI) | payer BC ==
[~2024-09-05] MED LIST changes: -LIDOCAINE 2% 100MG/5ML SDV (FOR ANES.) As Ordered ONE; -MIDAZOLAM INJ 2MG/2ML VIAL As Ordered ONE; -ONDANSETRON 4MG 2ML VIAL As Ordered ONE; -dexmedeTOMIDine (4MCG/ML)200MCG/50ML BTL (PRECEDEX) As Ordered ONE; -fentaNYL 100 MCG/2 ML INJECTION As Ordered ONE; -propofoL 200 MG/20 ML VIAL As Ordered ONE
== END ==
LOC: M SLEEP HO 14:56
PROVIDERS: ATTEND Physician Assistant
DX: G47.33 Obstructive sleep apnea (adult) (pediatric) (principal)

== ENCOUNTER → 2024-09-06 | Outpatient (REF) | payer BC ==
[2024-09-06 13:44] LABS: APPEARANCE, URINE CLEAR (CLEAR); BACTERIA, URINE AUTO NEGATIVE (NEGATIVE); BILIRUBIN, URINE AUTO NEGATIVE (NEGATIVE); BLOOD, URINE BLOOD NEGATIVE (NEGATIVE); COLOR, URINE STRAW (YELLOW); GLUCOSE, URINE (UA) AUTO NEGATIVE (NEGATIVE); KETONE, URINE AUTO NEGATIVE (NEGATIVE); LEUKOCYTE ESTERASE, URINE AUTO NEGATIVE (NEGATIVE); NITRITE, URINE AUTO NEGATIVE (NEGATIVE); PROTEIN, URINE AUTO NEGATIVE (NEGATIVE); RBC, URINE AUTO 0 /HPF (0-3); SPECIFIC GRAVITY URINE AUTO 1.008 (1.002-1.035); SQUAMOUS EPITHELIAL CELL UR AU 0 /HPF (0-6); UROBILINOGEN, URINE AUTO 0.2 mg/dL (0.0-2.0); WBC, URINE AUTO 0 /HPF (0-3)
== END ==
LOC: M SMT 12:59
PROVIDERS: ATTEND Nurse Practitioner Family
DX: N39.3 Stress incontinence (female) (male) (principal)